=== PATIENT | female | born 1995 | race American Indian/Alaskan Native ===

== ENCOUNTER 2021-06-23 12:00 | Outpatient (CLI) | payer OTHER ==
--- NOTE | 2021-06-23 13:27 | XRay Report ---
Lumbar spine Indication low back pain FINDINGS: Alignment appears normal. No compression fractures seen. Sacrum and sacroiliac joints appea r normal. Signer Name: Eduardo Templeton MD Signed: 06/23/2021 1:16 PM Workstation Name: [id number]
== END 2021-06-23 12:01 | disposition home or self-care (01) ==
LOC: XRAY 12:00
PROVIDERS: ATTEND Internal Medicine
DX: M54.50 Low back pain, unspecified (principal)
CPT/HCPCS: 72110